=== PATIENT | male | born 1995 | race Two or more races ===

== ENCOUNTER 2024-03-16 09:59 | Emergency (ER) | payer MEDICAID, OTHER ==
[~2024-03-16] VITALS: Ht 170.2 cm; Wt 70.5 kg
[~2024-03-16 09:59] MED LIST: ACET-2080 PO; IBUP-1554 PO
[2024-03-16 10:12] VITALS: BP 108/68; PULSE 62; RESP 18; TEMP 98.2; O2SAT 99
[2024-03-16] MEDS: LIDOCAINE 1% 10 ML VIAL SQ ONE (11:52)
== END 2024-03-16 13:36 | disposition home or self-care (01) ==
LOC: EMS 09:59
DX: S01.01XA Laceration without foreign body of scalp, initial encounter (principal); X58.XXXA Exposure to other specified factors, initial encounter; Y93.89 Activity, other specified; Y92.89 Other specified places as the place of occurrence of the external cause; Y99.8 Other external cause status
CPT/HCPCS: 99282; 12001; J3490